=== PATIENT | female | born 1945 | race Caucasian/White ===

== ENCOUNTER → 2016-05-19 | Day surgery (SDC) | payer MEDICARE, BC ==
[~2016-05-19] VITALS: Ht 165.1 cm; Wt 83.9 kg
[2016-05-19] VITALS (12 sets, daily range): BP systolic 115–146; BP diastolic 53–84
[~2016-05-19] MED LIST: Bacitracin Oint 15gm Tube TOPIC ONE; Cocaine 4% Vial TOPIC ONE; Glycopyrrolate 0.2mg/ml 1ml Vial ONE; INDERAL LA60 MG ORAL; Kenalog-40 1ml Vial ONE; LR 1000ml 1,000 ML IVLG SCH; LR 1000ml ONE; LYRICA75 M1 ORAL; Lidocaine 1% 10mg/ml/EPI 0.01mg/ml 50ml INJ ONE; NS Irrig 1000ml ONE; Neostigmine 1mg/ml 10ml Inj ONE; Oxymetazoline 0.05% Na Spray 30ml NASAL ONE; Propofol 10mg/ml 100ml btl IV ONE; Sterile Water Irrig 1000ml IRRIG ONE; Surgicel 4in x 8in TOPIC ONE; TRAMADOL HCL50 MG ORAL; ZYRTEC10 MG ORAL; Zemuron 50mg/5ml Inj IV ONE; ceFAZolin sod 1 GM in NS 55 ML IVPB ONE; fentaNYL 100 mcg/2 mL IV ONE; fentaNYL 100 mcg/2 mL IV PRN
--- NOTE | 2016-05-19 11:25 | Anethesia Preoperative Eval ---
Anesthesia Pre-op PMH/ROS General Date of Evaluation: May 19, 2016 Time of Evaluation: 11:00 Anesthesiologist: Werner ASA Score: ASA 2 Mallampati Score Class I : Soft palate, uvula, fauces, pillars visible Class II: Soft palate, uvula, fauces visible Class III: Soft palate, base of uvula visible Class IV: Only hard plate visible Mallampati Classification: Class II Surgeon: Bruna Diagnosis: deviated septum Surgical Procedure: setoplasty, SMRT Anesthesia History: none Family History: no anesthesia problems Allergies: Coded Allergies: SULFA (SULFONAMIDE ANTIBIOTICS) (Verified Allergy, Intermediate, rash, ) CODEINE (Verified Adverse Reaction, Intermediate, vomiting, 05/19/16) Medications: see eMAR Past Medical History Cardiovascular: Denies: CAD, HTN, NM, arrhythmia, other, valve dz Pulmonary: Reports: MICHAEL Gastrointestinal/Genitourinary: Denies: CRI, ESRD, GERD, other Neurologic/Psychiatric: Denies: CVA, TIA, dementia, depression/anxiety, other Endocrine: Denies: DM, hypothyroidism, other, steroids HEENT: Denies: NOME (L), NOME (R), cataract (L), cataract (R), glaucoma, other Hematology/Immune: Denies: DVT, anemia, bleeding disorder, other Musculoskeletal/Integumentary: Denies: DDD, DJD, OA, RA, edema, other PMH Narrative: MICHAEL, Fibrimyalgia PSxH Narrative: nasal mass removal Anesthesia Pre-op Phys. Exam Physician Exam Last Vital Signs Date Time Temp Pulse Resp B/P Pulse Ox O2 Delivery O2 Flow Rate FiO2 05/19/16 09:58 96.8 65 18 129/71 97 Room Air Constitutional: NAD Neurologic: CN 2-12 intact Cardiovascular: RRR Respiratory: CTA Gastrointestinal: S/NT/ND Airway Exam Mallampati Score: Class II MO: full ROM: full Teeth: intact Dentures: no lower, no upper SOURAV PANIAGUA D.O. May 19, 2016 11:25
--- NOTE | 2016-05-19 11:25 | Pre-Procedure Note/Attestation ---
Pre-Procedure Note/Attestation Complete Prior to Procedure Planned Procedure: not applicable Procedure Narrative: nasal obstruction unresponsive to medical treatment Indications for Procedure Pre-Operative Diagnosis: septal deviation, bilateral hypertrophied inferior turbinates Attestation I attest that I discussed the nature of the procedure; its benefits; risks and complications; and alternatives (and the risks and benefits of such alternatives ), prior to the procedure, with the patient (or the patient's legal commercial pest control representative). I attest that, if there was a reasonable possibility of needing a blood transfusion, the patient (or the patient's legal commercial pest control representative) was given the [facility] standardized written summary, pursuant to the [place] Blood Safety Act ([place] Health and Safety Code # 1645, as amended). I attest that I re-evaluated the patient just prior to the surgery and that there has been no change in the patient's H&P, except as documented below: ISRAEL BRADFORD May 19, 2016 11:25
--- NOTE | 2016-05-19 13:29 | Brief Operative Note ---
Immediate Post Operative Note Operative Note Pre-op Diagnosis: septal deviation, bilateral hypertrophied inferior turbinates Procedure: septoplasty, bilateral inferior turbinectomies with intramural coagulation Post-op Diagnosis: same as pre-op Surgeon: Gopal Bradford M.D. Anesthesiologist: Werner Anesthesia: MAC Specimen: yes - septum Complications: none Condition: stable Estimated Blood Loss: minimal Drains: none Packing: [email or web address] Implant(s) used?: No GOPAL BRADFORD May 19, 2016 13:29
--- NOTE | 2016-05-19 13:39 | Immediate Post-Op Evaluation ---
Immediate Post-Op Evalulation Immediate Post-Op Evalulation Procedure: septoplasty, smrt Date of Evaluation: May 19, 2016 Time of Evaluation: 13:30 IV Fluids: 500ml Blood Products: none Estimated Blood Loss: minimal Urinary Output: due to void Blood Pressure Systolic: 115 Blood Pressure Diastolic: 53 Pulse Rate: 69 Respiratory Rate: 16 O2 Sat by Pulse Oximetry: 98 Temperature (Fahrenheit): 98 Pain Score (1-10): 0 Nausea: No Vomiting: No Complications none Patient Status: awake, reacts Drug: ancef 1 gm Given Within 1 Hr of Incision: Yes Time Given: 11:45 SOURAV PANIAGUA D.O. May 19, 2016 13:39
--- NOTE | 2016-05-19 13:45 | 48 Hour Post Anesthesia Eval ---
Post Anesthesia Evaluation Procedure: septoplasty, smrt Date of Evaluation: May 19, 2016 Time of Evaluation: 13:44 Blood Pressure Systolic: 115 0: 56 Pulse Rate: 60 Respiratory Rate: 16 Temperature (Fahrenheit): 98 O2 Sat by Pulse Oximetry: 99 Airway: patent Nausea: No Vomiting: No Pain Intensity: 0 Hydration Status: adequate Cardiopulmonary Status: stable Mental Status/LOC: patient returned to baseline Follow-up Care/Observations: as per surgeon Post-Anesthesia Complications: none Follow-up care needed: N/A SOURAV PANIAGUA D.O. May 19, 2016 13:45
--- NOTE | 2016-05-22 02:08 | Operative Note - Dictated ---
DATE OF OPERATION: 05/19/2016 SURGEON: Gopal Mcfarland M.D. ANESTHESIOLOGIST: Dr. Cong Caldera. PREOPERATIVE DIAGNOSES: 1. Septal deviation. 2. Bilateral hypertrophied inferior turbinates. POSTOPERATIVE DIAGNOSES: 1. Septal deviation. 2. Bilateral hypertrophied inferior turbinates. PROCEDURE PERFORMED: 1. Septoplasty. 2. Bilateral inferior turbinectomies with intramural coagulation. INDICATION FOR SURGERY: The patient is a female, who complains of left greater than right nasal obstruction associated with postnasal drip and constant mouth breathing. She also suffers from sleep apnea and uses CPAP for which her nasal congestion is interfering with the use of a CPAP machine. She was placed on various medications without relief of her nasal obstruction. She is now being brought to the operating room for the repair of her nasal obstruction. FINDINGS AT SURGERY: Revealed a S-shaped septal deviation with bilateral hypertrophied inferior turbinates. Procedure And Finding: The patient was brought to the operating room while premedicated and has received preoperative antibiotics. She was then placed in a supine position on the operating room table. After the patient underwent satisfactory endotracheal intubation, she was given IV sedation. 0.25% Hesham-Synephrine was used to spray the nasal cavity. After a suitable period of vasoconstriction, sterile Q-tips saturated with Betadine were used to sterilize the intranasal cavity. Approximately 12 mL of 1% Xylocaine with 1:1000 epinephrine were used to inject the nasal and septal frameworks. Less than 200 mg of cocaine was used on intranasal packing. The patient had a very narrow nasal passage and making it difficult to pack the nasal passage. The patient was then prepped and draped in the usual sterile fashion. After a suitable period of vasoconstriction, the packing was removed. Examination revealed the nasal septum to be deviated to the right and then deviated to the left inferiorly. The left septal deviation continued all the way back to posterior choana. The septum was also noted to be dislocated out of a large obstructing left maxillary crest spur. This combined with the patient's bilateral hypertrophied inferior turbinates, created a left greater than right nasal airway obstruction. With a #15 blade, a left inferior septal incision was then made and a left mucoperichondrial mucoperiosteal flap was then elevated. During the elevation multiple fracture sites were encountered with the mucoperichondriium trappped within the fracture sites The mucosa was able to be from the fractured cartilage without incident. An incision was made between the cartilage and bony septum and right mucoperiosteal flap was then elevated. That portion of overriding and obstructing, perpendicular plate of the ethmoid and vomer bone were incised in strips from any attachments and removed the field of operation. A similar procedure was performed on the cartilaginous septum, maintaining good anterior and inferior support. A mallet and chisel was then used to remove the left maxillary crest obstructing spur. Re-examination now revealed the septum to be in a more midline physiologic position for breathing. Bipolar intramural coagulation of both inferior turbinates was then performed. An incision was made on the undersurface of both inferior turbinates and mucosa stripped the underlying bone. The inferior turbinates were then outfractured and small pieces of bone were removed from the pockets. Re-examination now revealed the patient to have a good bilateral nasal airway. All blood was suctioned from the nose and nasopharynx area. 4-0 plain was used to close the septal incision as well as to splint the septum. Telfa coated with bacitracin ointment was secured intranasally with a suture of 3-0 silk and the procedure was terminated. The patient tolerated procedure well and left the operating room in satisfactory condition. Estimated blood loss was less than 30 mL. Sponge and needle count were correct. Gopal Mcfarland M.D. DR: Haritha JOB#: [id number] CC: [place]
== END | disposition home or self-care (01) ==
LOC: SUR 08:34
DX: J34.2 Deviated nasal septum (principal); J34.3 Hypertrophy of nasal turbinates; G47.33 Obstructive sleep apnea (adult) (pediatric); M17.9 Osteoarthritis of knee, unspecified; G25.0 Essential tremor; M79.7 Fibromyalgia; E66.9 Obesity, unspecified; G62.9 Polyneuropathy, unspecified; Z78.0 Asymptomatic menopausal state; Z88.5 Allergy status to narcotic agent; Z88.2 Allergy status to sulfonamides
CPT/HCPCS: 30520; 30802; J0690; J2405; J2704; J2710; J3010; J7120; 94003; 94150